=== PATIENT | male | born 1985 | race American Indian/Alaskan Native ===

== ENCOUNTER 2018-01-06 21:13 | Emergency (ER) | payer SELFPAY ==
--- NOTE | 2018-01-07 01:00 | Emergency Department Report ---
- General Chief Complaint: Upper Respiratory Infection Stated Complaint: FEVER,CONGESTION,COLD Time Seen by Provider: 01/07/18 00:59 Source: patient Mode of arrival: Ambulatory Limitations: No Limitations - History of Present Illness Initial Comments: 32-year-old male past medical history smoker presents with complaint of nasal congestion and slight body aches cough and congestion for approximately 3 days. Patient denies nausea or vomiting. States that after coughing fits he has been experiencing hiccups. Patient is fully lucid awake alert and oriented 3. Denies chest pain or shortness of breath at rest. States the cough is slightly productive. Denies any significant fever or chills. Patient denies any sick contacts at work but does state that his son has a viral upper respiratory syndrome. Patient denies sore throat or earache. MD Complaint: cough Onset/Timin -: days(s) Severity: moderate Quality: aching Associated Symptoms: nasal congestion, cough - Related Data Previous Rx's Medication Instructions Recorded Last Taken Type Albuterol Sulfate [Ventolin HFA] 2 puff IH Q4H PRN #1 hfa.aer.ad 01/07/18 Unknown Rx Benzonatate [Tessalon Perles] 100 mg PO Q8HR PRN #20 capsule 01/07/18 Unknown Rx Dextromethorphan/Benzocaine 1 each PO Q4H PRN #1 box 01/07/18 Unknown Rx [Cepacol Sorethroat-Cough Nohemy] Famotidine [Pepcid] 20 mg PO BID PRN #30 tablet 01/07/18 Unknown Rx Phenylephrine/Dm/Acetaminop/GG 10 ml PO Q6H PRN #1 liquid 01/07/18 Unknown Rx [Mucinex Uhgm-Sdy-Hsxkzvecqc Lq] Allergies Allergy/AdvReac Type Severity Reaction Status Date / Time No Known Allergies Allergy Unverified 01/06/18 21:47 ED Review of Systems ROS: Stated complaint: FEVER,CONGESTION,COLD Other details as noted in HPI Constitutional: denies: chills, fever Eyes: denies: eye pain, eye discharge, vision change ENT: denies: ear pain, throat pain Respiratory: cough. denies: shortness of breath, wheezing Cardiovascular: denies: chest pain, palpitations Endocrine: no symptoms reported Gastrointestinal: denies: abdominal pain, nausea, diarrhea Genitourinary: denies: urgency, dysuria Musculoskeletal: denies: back pain, joint swelling, arthralgia Skin: denies: rash, lesions Neurological: denies: headache, weakness, paresthesias Psychiatric: denies: anxiety, depression Hematological/Lymphatic: denies: easy bleeding, easy bruising ED Past Medical Hx - Past Medical History Previous Medical History?: No - Surgical History Past Surgical History?: No - Social History Smoking Status: Current Every Day Smoker Substance Use Type: None - Medications Home Medications: Home Medications Medication Instructions Recorded Confirmed Last Taken Type Albuterol Sulfate [Ventolin HFA] 2 puff IH Q4H PRN #1 hfa.aer.ad 01/07/18 Unknown Rx Benzonatate [Tessalon Perles] 100 mg PO Q8HR PRN #20 capsule 01/07/18 Unknown Rx Dextromethorphan/Benzocaine 1 each PO Q4H PRN #1 box 01/07/18 Unknown Rx [Cepacol Sorethroat-Cough Nohemy] Famotidine [Pepcid] 20 mg PO BID PRN #30 tablet 01/07/18 Unknown Rx Phenylephrine/Dm/Acetaminop/GG 10 ml PO Q6H PRN #1 liquid 01/07/18 Unknown Rx [Mucinex Falh-Yli-Rnjjvbltvm Lq] ED Physical Exam - General Limitations: No Limitations General appearance: alert, in no apparent distress - Head Head exam: Present: atraumatic, normocephalic - Eye Eye exam: Present: normal appearance, PERRL, EOMI - ENT ENT exam: Present: mucous membranes moist - Neck Neck exam: Present: normal inspection, full ROM - Respiratory Respiratory exam: Present: normal lung sounds bilaterally. Absent: respiratory distress - Cardiovascular Cardiovascular Exam: Present: regular rate, normal rhythm. Absent: systolic murmur, diastolic murmur, rubs, gallop - GI/Abdominal GI/Abdominal exam: Present: soft, normal bowel sounds - Rectal Rectal exam: Present: deferred - Extremities Exam Extremities exam: Present: normal inspection - Back Exam Back exam: Present: normal inspection - Neurological Exam Neurological exam: Present: alert, oriented X3, CN II-XII intact, normal gait - Psychiatric Psychiatric exam: Present: normal affect, normal mood - Skin Skin exam: Present: warm, dry, intact, normal color. Absent: rash ED Course Vital Signs 01/06/18 01/06/18 01/07/18 21:39 21:44 01:47 Temperature 97.8 F 97.8 F 98.4 F Pulse Rate 85 66 Respiratory 18 18 20 Rate Blood Pressure 110/78 110/78 Blood Pressure 110/67 [Right] O2 Sat by Pulse 97 99 Oximetry ED Medical Decision Making - Medical Decision Making A/P: Upper respiratory infection likely viral, hiccups 1-albuterol inhaler, Motrin when necessary, Tessalon Perles, Mucinex when necessary 2-short course of Reglan for hiccups when necessary, Pepcid when necessary 3-I advised patient to follow up with primary care or to return to the ED for any inability to tolerate by mouth fluid or food persistent nausea and vomiting severe fevers and chills or fevers persistently above 100.4F despite antipyretic use, severe lethargy. Patient stated he understood my instructions. I advised patient to remain well-hydrated. 4-chest x-ray is unremarkable. I offered patient influenza testing but he declined at this time, stated he would rather be treated symptomatically and would return to ED if his symptoms worsened. 5- vital signs stable for discharge Critical care attestation.: If time is entered above; I have spent that time in minutes in the direct care of this critically ill patient, excluding procedure time. ED Disposition Clinical Impression: Viral syndrome, Cough, Hiccups Upper respiratory infection Qualifiers: URI type: unspecified viral URI Qualified Code(s): J06.9 - Acute upper respiratory infection, unspecified Disposition: DC-01 TO HOME OR SELFCARE Is pt being admited?: No Does the pt Need Aspirin: No Condition: Stable Instructions: Hiccups (ED), Upper Respiratory Infection (ED), Viral Syndrome ( ED), Cold Symptoms (ED) Prescriptions: Albuterol Sulfate [Ventolin HFA] 2 puff IH Q4H PRN #1 hfa.aer.ad PRN Reason: Shortness Of Breath Benzonatate [Tessalon Perles] 100 mg PO Q8HR PRN #20 capsule PRN Reason: Cough Dextromethorphan/Benzocaine [Cepacol Sorethroat-Cough Nohemy] 1 each PO Q4H PRN #1 box PRN Reason: Cough Famotidine [Pepcid] 20 mg PO BID PRN #30 tablet PRN Reason: Hiccups Phenylephrine/Dm/Acetaminop/GG [Mucinex Hldv-Olk-Wugbyjsoyt Lq] 10 ml PO Q6H PRN #1 liquid PRN Reason: Cough Referrals: [facility] [Provider Group] - 3-5 Days [facility] [Outside] - 3-5 Days YANETH COX MD [Staff Physician] - 3-5 Days Forms: Accompanied Note, Work/School Release Form(ED) Time of Disposition: 01:58
--- NOTE | 2018-01-07 01:23 | XRay Report ---
FINAL REPORT EXAM: XR CHEST ROUTINE 2V HISTORY: worsening cough TECHNIQUE: PA and lateral views of the chest were submitted. FINDINGS: The heart size and mediastinum appear normal. The lungs are clear. The lungs are slightly hyperinflated. Pleural fluid is not seen. The bones and soft tissues well maintained. IMPRESSION: Slight hyperinflation. No acute process in the chest.
[2018-01-07] MEDS ORDERED: PEPCID PO ONE (01:39)
[2018-01-07] MEDS ORDERED: ALUM-MAG HYDROX-SIMETH 200-200-20MG/5ML PO ONE (01:40)
[2018-01-07] MEDS ORDERED: REGLAN PO ONE (01:40)
[2018-01-07 01:56] VITALS: BP 110/67
== END 2018-01-07 02:05 | disposition home or self-care (01) ==
LOC: ED 21:13
DX: J06.9 Acute upper respiratory infection, unspecified (principal); B34.9 Viral infection, unspecified; R06.6 Hiccough; F17.200 Nicotine dependence, unspecified, uncomplicated
CPT/HCPCS: 71046